=== PATIENT | female | born 1960 | race Caucasian/White ===

== ENCOUNTER 2022-01-25 14:32 | Emergency (ER) | payer OTHER, SELFPAY ==
[2022-01-25 14:49] VITALS: BP 152/110; PULSE 96; RESP 16; TEMP 36.2; O2SAT 98
[2022-01-25 14:52] VITALS: BP 152/110; PULSE 96; RESP 16; TEMP 36.2; O2SAT 98
--- NOTE | 2022-01-25 15:38 | ED.GENADULT ---
HPI - General Adult General Chief complaint: Dental/Oral Stated complaint: other Source: patient Mode of arrival: ambulatory Limitations: no limitations History of Present Illness HPI narrative: Patient presents for evaluation of right-sided facial swelling. She states she noted some pain in the right side her face 2 days ago. No identified precipitating cause or injury. She noted swelling in the area yesterday, which worsened today. Today she noted a right sided facial droop. She states that at the present time she does not have any pain. Denies any dental trauma, pain, swelling in the gums. Denies sore throat or otalgia. 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 She states she has been in remission since that time. She was concerned about potential recurrence so came in here for further evaluation. She is not under the care of her primary care provider this time but has an appointment with a new provider scheduled for this coming . She denies any headache, difficulty breathing or swallowing, paresthesias, problems with dysarthria. She believes she had shingles many years ago. No additional complaints or concerns. Related Data Home Medications Medication Instructions Recorded Confirmed bupropion HCl 150 mg tablet,12 hr mg PO 01/25/22 sustained-release celecoxib 200 mg capsule mg 01/25/22 cevimeline 30 mg capsule 01/25/22 pramipexole 0.5 mg tablet mg 01/25/22 sertraline 100 mg tablet mg 01/25/22 Allergies Allergy/AdvReac Type Severity Reaction Status Date / Time ADHISIVES AdvReac Unknown Rash Uncoded 01/25/22 14:48 Review of Systems Review of Systems: CONSTITUTIONAL: Denies fever, chills, or sweats. EYES: Denies visual changes, redness, or discharge. ENT: Reports right sided facial swelling. Reports recent right sided facial pain, now resolved. Reports right sided facial droop. Denies rhinorrhea, congestion, sore throat, or otalgia. CARDIOVASCULAR: Denies chest pain, palpitations, or edema. RESPIRATORY: Denies cough or dyspnea. GASTROINTESTINAL: Denies abdominal pain, nausea, vomiting, or diarrhea. GENITOURINARY: Denies dysuria or hematuria. SKIN: Denies rash or itching. MUSCULOSKELETAL: Denies back pain, joint pain, or myalgia. NEUROLOGIC: Denies headache, numbness, dizziness, or weakness. PSYCHIATRIC: Denies anxiety or depression. [facility] Past Medical History Medical History History of nasal cavity, middle ear, or sinus malignancy Hypertension Surgical History Surgical History (Updated 01/25/22 @ 15:44 by LUZ [place], LD) History of cervical spinal surgery History of tympanostomy tube placement Family History Family History Mother Family history non-contributory Social History Social History Alcohol intake: current Substance use: never Gender identity (if verbalized by the patient): Female Spiritual care concerns: No Exam Narrative: GENERAL: Well-appearing, well-nourished, and in no acute distress. HEAD: Normocephalic, atraumatic. EYES: PERRLA and EOMI. ENT: There is right-sided facial swelling in the maxillary region extending through the nasal labial fold. Nares clear, no rhinorrhea or epistaxis. Mucous membranes moist. Oropharynx without tonsillar hypertrophy exudate or other lesions. Bilateral TMs pearly bach nonbulging. there is a tympanostomy tube on the right. I do not appreciate a dental abscess or drainable fluid collection NECK: Supple. No adenopathy or masses. No carotid bruits or JVD CHEST: Clear to auscultation. No respiratory distress. No wheezes rales or rhonchi HEART: Regular rate and rhythm. No murmur heard. Normal peripheral pulses. ABDOMEN: Soft, nontender, nondistended, normal
== END 2022-01-25 15:36 | disposition short-term general hospital (02) ==
LOC: EXPGOSH 14:36
PROVIDERS: Emergency Provider Nurse Practitioner; PCP Emergency Medicine
DX: R22.0 Localized swelling, mass and lump, head (principal); Z85.818 Personal history of malignant neoplasm of other sites of lip, oral cavity, and pharynx; I10 Essential (primary) hypertension; Z92.21 Personal history of antineoplastic chemotherapy; Z92.3 Personal history of irradiation
CPT/HCPCS: 99202; G0463

== ENCOUNTER 2022-01-25 15:50 | Emergency (ER) | payer OTHER, SELFPAY ==
[2022-01-25] VITALS (8 sets, daily range): BP systolic 154–186; BP diastolic 94–117; PULSE 86–91; RESP 15–18; TEMP 36.3; O2SAT 96–99
--- NOTE | 2022-01-25 17:07 | ECG_ITS ---
Measurements Intervals [place] Rate: 88 P: 54 CA: 160 QRS: 26 QRSD: 77 T: 57 QT: 371 QTc: 451 Interpretive Statements SINUS RHYTHM POSSIBLE LEFT ATRIAL ENLARGEMENT [-0.1mV P WAVE IN V1/V2] NONSPECIFIC ST AND T-WAVE ABNORMALITY NO PREVIOUS ECG AVAILABLE FOR COMPARISON Electronically Signed On 01-26-2022 11:14:03 LINKING MACHINE OPERATOR by Cesario West M.D.
[2022-01-25] MEDS: hydrALAZINE HCL 20 MG/ML VIAL 10 MG IV PUSH (17:19)
[2022-01-25] MEDS: CLINDAMYCIN 600 MG/D5W 50 ML 600 MG/50 ML PIGGYBACK 100 MG IVPB (17:23)
[2022-01-25 17:28] LABS: Basophils Absolute Auto 0.1 K/mm3 (0.0-0.1); Basophils Percent Auto 1.1 % (0.2-1.2); Eosinophils Absolute Auto 0.3 K/mm3 (0-0.3); Eosinophils Percent Auto 3.9 % (0-4.4); Hematocrit 40.7 % (37.0-47.0); Hemoglobin 13.3 g/dL (12.0-15.0); Immature Granulocyte Absolute 0.03 K/mm3 (0.00-0.031); Immature Granulocyte Percent A 0.5 % (0-0.5); Lymphocytes Absolute Auto 1.14 K/mm3 (0.9-3.2); Lymphocytes Percent Auto 17.6 % (18.3-44.2); Mean Corpuscular HGB Conc 32.7 g/dl (32-36); Mean Corpuscular Hemoglobin 29.7 pg (26-34); Mean Corpuscular Volume 90.8 fl (80-100); Mean Platelet Volume 9.7 fl (7.4-10.4); Monocytes Absolute Auto 0.6 K/mm3 (0.1-0.6); Monocytes Percent Auto 8.5 % (2.6-8.5); Neutrophils Absolute Auto 4.4 K/mm3 (1.3-6.7); Neutrophils Percent Auto 68.4 % (45.5-73.1); Platelet Count Result 255 k/mm3 (150-375); Red Blood Count 4.48 M/mm3 (4.2-5.4); Red Cell Distribution Width 14.1 % (11.5-14.5); White Blood Count 6.5 K/mm3 (4.5-10.0)
--- NOTE | 2022-01-25 17:33 | ED.DENTAL ---
HPI - Dental/Oral General Chief complaint: Dental/Oral Stated complaint: right side of the face is swollen Time Seen by Provider: 01/25/22 15:58 History of Present Illness HPI Narrative: 61-year-old female present to the emergency department for evaluation of facial swelling. Approximately 2 days ago patient noticed she began having some right-sided facial swelling. Patient reports some associated upper dental pain. Patient does have a prior history of a nasal carcinoma and has had prior radiation therapy. Patient denies any difficulty breathing or swallowing. Patient denies any swelling of her tongue. Patient does have some right-sided facial swelling. Related Data Home Medications Medication Instructions Recorded Confirmed bupropion HCl 150 mg tablet,12 hr 150 mg PO DAILY 01/25/22 01/25/22 sustained-release celecoxib 200 mg capsule 200 mg PO DAILY 01/25/22 01/25/22 cevimeline 30 mg capsule 30 mg PO USEASDIRECTD 01/25/22 01/25/22 pramipexole 0.5 mg tablet 0.5 mg PO DAILY 01/25/22 01/25/22 sertraline 100 mg tablet 100 mg PO DAILY 01/25/22 01/25/22 Allergies Allergy/AdvReac Type Severity Reaction Status Date / Time ADHISIVES AdvReac Unknown Rash Uncoded 01/25/22 14:48 Review of Systems Review of Systems: CONSTITUTIONAL: Denies fever, chills, or sweats. EYES: Denies visual changes, redness, or discharge. ENT: Facial swelling CARDIOVASCULAR: Denies chest pain, palpitations, or edema. RESPIRATORY: Denies cough or dyspnea. GASTROINTESTINAL: Denies abdominal pain, nausea, vomiting, or diarrhea. GENITOURINARY: Denies dysuria or hematuria. SKIN: Denies rash or itching. MUSCULOSKELETAL: Denies back pain, joint pain, or myalgia. NEUROLOGIC: Denies headache, numbness, or weakness. [facility] Past Medical History Medical History (Updated 01/25/22 @ 18:05 by Huang Dash MD) History of nasal cavity, middle ear, or sinus malignancy Hypertension Surgical History Surgical History (Updated 01/25/22 @ 15:44 by Alber Jalloh, LUZ, ) History of cervical spinal surgery History of tympanostomy tube placement Family History Family History Mother Family history non-contributory Social History Social History Alcohol intake: current Substance use: never Gender identity (if verbalized by the patient): Female Spiritual care concerns: No Exam Narrative: APPEARANCE: Well appearing, no pain, no distress, well-nourished. HEAD: normocephalic, atraumatic. Right-sided facial swelling EYES: PERRLA/EOMI, conjunctivae clear. NOSE: Normal no drainage EARS:TMS clear with good light reflex. THROAT: Pharynx clear, no exudate. NECK: Supple. No adenopathy, no masses. RESPIRATORY: Airway patent, respirations nonlabored. Clear to auscultation bilaterally, no rales, rhonchi, wheezing. CARDIOVASCULAR: Regular rate and rhythm without murmurs rubs or gallops. ABDOMINAL: Soft, nontender, nondistended, normal bowel sounds MUSCULOSKELETAL: Moves all extremities. Strength/ROM intact, No edema, No calf tenderness. NEURO: Alert. Cranial nerves II through XII intact. SKIN: Warm, dry. Normal Color PSYCHIATRIC: Normal affect/mood. Course Course Emergency Course: Suspect dental infection as the underlying etiology for her facial swelling. Patient was treated with antibiotics. Patient blood pressure was significantly elevated upon arrival. This did improve with a single dose of hydralazine. Patient was also started on p.o. hydrochlorothiazide after discussion with her soon-to-be primary care physician. Patient and family were comfortable with the plan for treatment and were educated on reasons to return to the emergency room. Vital Signs Vital signs: Vital Signs Temperature 97.3 F L 01/25/22 15:55 Pulse Rate 88 01/25/22 15:55 Respiratory Rate 15 01/25/22 15:55 Blood Pressure 186/107 H 01/25/22 15:55
[2022-01-25 17:38] LABS: Alanine Aminotransferase 23 U/L (6-35); Albumin Level 4.1 g/dL (3.5-5.1); Alkaline Phosphatase 61 U/L (38-126); Anion Gap 4 mmol/L (8-16); Aspartate Amino Transferase 29 U/L (14-36); Bilirubin,Total 0.5 mg/dL (0.2-1.3); Blood Urea Nitrogen 15 mg/dL (7-17); Calcium 9.1 mg/dL (8.4-10.2); Carbon Dioxide 33 mmol/L (22-30); Chloride 104 mmol/L (98-107); Estimated CRCL calculation 64 ml/min; Estimated Glomerular Filt Rate > 60; Glucose 95 mg/dL (65-110); Potassium 4.7 mmol/L (3.4-5.0); Sodium 141 mmol/L (137-145)
[2022-01-25] MEDS: hydroCHLOROthiazide 12.5 MG CAPSULE PO (18:17)
== END 2022-01-25 18:15 | disposition home or self-care (01) ==
PROVIDERS: Emergency Provider Emergency Medicine; PCP Emergency Medicine
DX: K04.7 Periapical abscess without sinus (principal); I10 Essential (primary) hypertension; Z85.22 Personal history of malignant neoplasm of nasal cavities, middle ear, and accessory sinuses; Z92.3 Personal history of irradiation; R94.31 Abnormal electrocardiogram [ECG] [EKG]
CPT/HCPCS: 36415; 80053; 85025; 93005; 96365; 96375; 99284; A9270; J0360

== ENCOUNTER 2022-10-06 08:38 | Outpatient (CLI) | payer OTHER, SELFPAY ==
--- NOTE | ~2022-10-06 | MR_ITS ---
EXAMINATION: MR brain/brain stem wo/w con DATE: 10/06/2022 10:12 INDICATION: Dizziness and giddiness. TECHNIQUE: Magnetic resonance imaging (MRI) of the brain and brainstem was performed without and with 15 mL MultiHance intravenous contrast. COMPARISON: None. FINDINGS: There are scattered areas of nonspecific increased T2-weighted signal intensity in the cere bral white matter and rsisa. There are old infarcts in the cerebellum bilaterally. There are old infar cts in the bilateral basal ganglia. There is no intracranial hemorrhage, acute infarction, or abnorma l intracranial mass lesion. The ventricles are normal in size. There is a right mastoid effusion. The internal auditory canals and inner ears are normal. There is mucosal thickening in the paranasal sin uses. The orbits are normal. IMPRESSION: 1. 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 2. Moderate nonspecific cerebral white matter disease and pontine disease, which likely represents ch ronic small vessel ischemic disease. Reviewed, dictated and finalized at location A. IMPRESSION: 1. 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 2. Moderate nonspecific cerebral white matter disease and pontine disease, whic h likely represents chronic small vessel ischemic disease.
== END 2022-10-06 08:39 | disposition home or self-care (01) ==
PROVIDERS: PCP Emergency Medicine; Visit Provider Physician Assistant
DX: R42 Dizziness and giddiness (principal); H57.00 Unspecified anomaly of pupillary function; R93.0 Abnormal findings on diagnostic imaging of skull and head, not elsewhere classified
CPT/HCPCS: 70553; A9577

== ENCOUNTER 2023-04-28 09:08 | Outpatient (CLI) | payer OTHER, SELFPAY ==
--- NOTE | 2023-04-28 11:00 | NEURO_ITS ---
Impression: # Complains of numbness/nocturnal paresthesia of left hand. History of chemotherapy in the past. Not diabetic. # Severe left Carpal Tunnel Syndrome. # No ulnar neuropathy. # Needle/EMG exam of left APB mildly abnormal. Nerve Conduction Studies Anti Sensory Summary Table Stim Site NR Peak (ms) P-T Amp (?V) Site1 Site2 Delta-P (ms) Dist (cm) Harshil (m/s) Left Median Anti Sensory (2-3nd Digit) Wrist 8.7 11.0 Wrist 2-3nd Digit 8.7 14.0 16 Wrist 8.5 27.3 Wrist 2-3nd Digit 8.7 14.0 16 Left Radial Anti Sensory (Base 1st Digit) Wrist 2.0 29.8 Wrist Base 1st Digit 2.0 0.0 Left Ulnar Anti Sensory (5th Digit) Wrist 3.0 59.9 Wrist 5th Digit 3.0 14.0 47 Motor Summary Table Stim Site NR Onset (ms) O-P Amp (mV) Site1 Site2 Delta-0 (ms) Dist (cm) Harshil (m/s) Left Median Motor (Abd Poll Brev) Wrist 8.2 1.4 Elbow Wrist 5.1 28.0 55 Elbow 13.3 2.0 Left Ulnar Motor (Abd Dig Minimi) Wrist 2.8 8.4 A Elbow Wrist 5.4 29.0 54 A Elbow 8.2 6.9 F Wave Studies NR F-Lat (ms) L-R F-Lat (ms) Left Median (Mrkrs) (Abd Poll Brev) 28.43 Left Ulnar (Mrkrs) (Abd Dig Min) 29.12 EMG Side Muscle Nerve Root Ins Act Fibs Amp Dur Recrt Comment Left 1stDorInt Ulnar C8-T1 Nml Nml Nml Nml Nml Left Ext Indicis Radial (Post Int) C7-8 Nml Nml Nml Nml Nml Left Ext Digitorum Radial (Post Int) C7-8 Nml Nml Nml Nml Nml Left BrachioRad Radial C5-6 Nml Nml Nml Nml Nml Left PronatorTeres Median C6-7 Nml Nml Nml Nml Nml Left Abd Poll Brev Median C8-T1 Nml Nml Nml >12ms +1 Left ABD Dig Min Ulnar C8-T1 Nml Nml Nml Nml Nml MTDD
== END 2023-04-28 09:09 | disposition home or self-care (01) ==
PROVIDERS: PCP Emergency Medicine; Visit Provider Emergency Medicine
DX: G56.02 Carpal tunnel syndrome, left upper limb (principal); G56.22 Lesion of ulnar nerve, left upper limb
CPT/HCPCS: 95886; 95909

== ENCOUNTER 2023-10-31 12:02 | Emergency (ER) | payer OTHER, SELFPAY ==
--- NOTE | ~2023-10-31 | XR_ITS ---
Right foot Technique: AP, oblique, and lateral views were obtained. Clinical History: Pain Findings: No acute fracture or dislocation is seen. Old, healed fracture of the fifth metatarsal note d. Osseous alignment is anatomic. Joint spaces are preserved without erosive or degenerative change. Soft tissues are unremarkable. Impression: No acute abnormality. Old, healed fracture deformity of the fifth metatarsal. Reviewed, dictated and finalized at location . Impression: No acute abnormality. Old, healed fracture deformity of the fifth metatarsal.
--- NOTE | 2023-10-31 12:08 | ED.GENADULT ---
HPI - General Adult General Chief complaint: Extremity Injury, Lower Stated complaint: INJURED R FOOT Time Seen by Provider: 10/31/23 12:08 Source: patient Mode of arrival: ambulatory Limitations: no limitations History of Present Illness HPI narrative: 63-year-old female patient presents to the [facility] with complaints of right foot pain. Patient states that she missed a step and fell Wednesday night. Patient states she has been icing it and has not been taking any Tylenol ibuprofen because she is due to have an ear surgery this coming . Patient states it is painful to walk on. Denies any numbness or tingling to the toes. Related Data Home Medications Medication Instructions Recorded Confirmed pantoprazole 40 mg tablet,delayed 40 mg PO 04/30/22 10/01/23 release Allergies Allergy/AdvReac Type Severity Reaction Status Date / Time ADHISIVES AdvReac Unknown Rash Uncoded 10/01/23 09:22 Review of Systems Review of Systems: CONSTITUTIONAL: Denies fever, chills, or sweats. EYES: Denies visual changes, redness, or discharge. ENT: Denies rhinorrhea, congestion, sore throat, or otalgia. CARDIOVASCULAR: Denies chest pain, palpitations, or edema. RESPIRATORY: Denies cough or dyspnea. GASTROINTESTINAL: Denies abdominal pain, nausea, vomiting, or diarrhea. GENITOURINARY: Denies dysuria or hematuria. SKIN: Denies rash or itching. MUSCULOSKELETAL: Denies back pain, joint pain, or myalgia. Positive right foot pain x2 days NEUROLOGIC: Denies headache, numbness, or weakness. PSYCHIATRIC: Denies anxiety or depression. [facility] Past Medical History Medical History History of nasal cavity, middle ear, or sinus malignancy Hypertension Surgical History Surgical History History of cervical spinal surgery History of tympanostomy tube placement Family History Family History Mother Family history non-contributory Social History Social History Social History: Caffeine-daily Smoking status: Never smoker Alcohol intake: current Drinks per week: 7 Alcohol use details: daily 1 drink Substance use: never Substance use type: does not use Do You Feel Safe in your Home?: Yes Lack of Transportation: No Lack of Food: Never True Current Housing: I Have Housing Concerned About Future Housing: No Difficulty Paying Gas/Electric Bills: No Difficulty Paying for Meds: No Currently Unemployed: No Education: Bachelor's Degree Difficulty w/ Childcare or Family Care: No Living arrangements: with family Gender identity (if verbalized by the patient): Female Spiritual care concerns: No Comments At the time of my signature I agree with nursing past medical history, surgical, social, and family history. There is no relevant family history pertinent to the presenting complaint. Exam Narrative: GENERAL: Well-appearing, well-nourished, and in no acute distress. HEAD: Normocephalic, atraumatic. EYES: PERRLA and EOMI. ENT: Nares clear, no rhinorrhea or epistaxis. Mucous membranes moist. NECK: Supple. No lymphadenopathy CHEST: Clear to auscultation. No respiratory distress. HEART: Regular rate and rhythm. No murmur heard. Normal peripheral pulses. ABDOMEN: Soft, nontender, nondistended, normal active bowel sounds. EXTREMITIES: Patient able to bear weight and ambulate with pain.. No surface trauma, ecchymosis, erythema, lesions, ulcers or break in skin integrity. The R foot is without obvious asymmetry or deformity when compared to the L foot. No bony step-off, tender to palpation over the right 5th metatarsal on the lateral side. Normal plantar/dorsiflexion, inversion/eversion. Distal motor and neurovascular status are intact. SKIN: Warm, dry, no rash. NEURO: No focal deficits. A
[2023-10-31 12:11] VITALS: BP 120/66; PULSE 95; RESP 16; TEMP 36.6; O2SAT 98
[2023-10-31 12:13] VITALS: BP 120/66; PULSE 95; RESP 16; TEMP 36.6; O2SAT 98
== END 2023-10-31 12:58 | disposition home or self-care (01) ==
PROVIDERS: Emergency Provider Nurse Practitioner Family; PCP Emergency Medicine
DX: S93.601A Unspecified sprain of right foot, initial encounter (principal); W10.9XXA Fall (on) (from) unspecified stairs and steps, initial encounter; I10 Essential (primary) hypertension; Z85.22 Personal history of malignant neoplasm of nasal cavities, middle ear, and accessory sinuses
CPT/HCPCS: 73630; 99213; G0463